=== PATIENT | male | born 1940 | race Caucasian/White ===

== ENCOUNTER 2021-01-07 18:35 | Emergency (ER) | payer OTHER ==
[~2021-01-07] VITALS: Ht 170.2 cm; Wt 81.6 kg
[2021-01-07] MEDS ORDERED: LEVOTHYROXINE25 MCG (19:34)
[2021-01-07] MEDS ORDERED: GLIMEPIRIDE1 MG (19:34)
[2021-01-08] MEDS ORDERED: LISINOPRIL2.5 MG PO (09:26)
[2021-01-08] MEDS ORDERED: GLIMEPIRIDE4 M1 PO (09:27)
[2021-01-08] MEDS ORDERED: METFORMIN HCL1000 M3 PO (09:27)
[2021-01-08] MEDS ORDERED: SIMVASTATIN10 MG PO (09:27)
== END 2021-01-08 12:44 | disposition home or self-care (01) ==
LOC: ER 18:35
DX: I16.0 Hypertensive urgency (principal); I10 Essential (primary) hypertension; K85.80 Other acute pancreatitis without necrosis or infection; K80.80 Other cholelithiasis without obstruction; N28.1 Cyst of kidney, acquired; R10.13 Epigastric pain

== ENCOUNTER 2021-01-14 20:42 | Inpatient (IN) | payer OTHER ==
[~2021-01-14] VITALS: Ht 154.9 cm; Wt 81.6 kg
[~2021-01-14 20:42] MED LIST: GLIMEPIRIDE1 MG; GLIMEPIRIDE4 M1 PO; LEVOTHYROXINE25 MCG; LISINOPRIL2.5 MG PO; METFORMIN HCL1000 M3 PO; SIMVASTATIN10 MG PO
[2021-01-14] MEDS ORDERED: PROTONIX40 M1 PO (21:13)
== END 2021-01-21 13:34 | disposition home or self-care (01) | DRG 417 ==
LOC: ER 20:42 → MEDJ 01-15 11:09
PROVIDERS: ADMIT Internal Medicine; ATTEND Internal Medicine
PROC: 0FT44ZZ Resection of Gallbladder, Percutaneous Endoscopic Approach (ICD-10-PCS; principal; 2021-01-15)
PROC: BF522Z0 Other Imaging of Gallbladder using Fluorescing Agent, Intraoperative (ICD-10-PCS; 2021-01-15)
DX: K80.20 Calculus of gallbladder without cholecystitis without obstruction (principal); K85.90 Acute pancreatitis without necrosis or infection, unspecified; C91.10 Chronic lymphocytic leukemia of B-cell type not having achieved remission; R11.0 Nausea; R63.0 Anorexia; E11.65 Type 2 diabetes mellitus with hyperglycemia; Z79.84 Long term (current) use of oral hypoglycemic drugs; E03.8 Other specified hypothyroidism; I12.9 Hypertensive chronic kidney disease with stage 1 through stage 4 chronic kidney disease, or unspecified chronic kidney disease; E11.22 Type 2 diabetes mellitus with diabetic chronic kidney disease; N18.9 Chronic kidney disease, unspecified; Z20.822 Contact with and (suspected) exposure to COVID-19; E63.8 Other specified nutritional deficiencies